=== PATIENT | female | born 1935 | race African-American/Black ===

== ENCOUNTER 2019-02-17 12:46 | Inpatient (IN) | payer MEDICARE ==
[~2019-02-17] VITALS: Ht 157.5 cm; Wt 65.3 kg
[~2019-02-17 12:46] MED LIST: ALBU6.7H9 IH; AMLO10TA80 PO; ATEN50TA PO; DIAZ10TA4 PO; HYDR-4135 PO; ROSU20TA2 PO
[2019-02-17] MEDS ORDERED: FAMOTIDINE 20MG/2ML VIAL IV STA (13:37)
[2019-02-17] MEDS ORDERED: ONDANSETRON HCL 4MG/2ML INJ IV STA ×2 (13:37→14:15)
[2019-02-17] MEDS ORDERED: SODIUM CHLORIDE 0.9% 1,000 ML IV ONE (14:15)
[2019-02-17] MEDS ORDERED: MORPHINE SULFATE 4 MG/ML CPJ (NOT FOR IM USE) IV STA (14:15)
[2019-02-17 14:39] LABS: BASOPHILS % 0.5 % (0.0-2.0); HEMATOCRIT. 50.2 % (36.0-48.0); HEMOGLOBIN. 16.6 g/dL (12.0-16.0); LYMPHOCYTES % 11.8 % (20.0-50.0); MEAN CORPUSCULAR HEMOGLOBIN 28.1 pg (28.0-32.0); MEAN CORPUSCULAR VOLUME 84.9 fL (81.0-99.0); MEAN PLATELET VOLUME 8.4 fl (7.4-10.4); MONOCYTES % 4.6 % (2.0-8.0); NEUTROPHILS % 83.1 % (40.0-76.0); PLATELET 273 x1000/uL (130-400); RED BLOOD CELL COUNT 5.91 mill/uL (4.2-5.4); RED CELL DISTRIBUTION WIDTH 15.2 % (11.6-14.6)
[2019-02-17 14:47] LABS: CHLORIDE 103 mEq/L (98-107)
[2019-02-17 15:13] LABS: INR 1.1; PROTHROMBIN TIME 11.1 sec (9.6-11.0)
[2019-02-17 16:37] LABS: CLARITY URINE CLOUDY (CLEAR); COLOR URINE DARK YELLOW (YELLOW); KETONES URINE 2+ (NEGATIVE); LEUKOCYTE ESTERASE URINE TRACE (NEGATIVE); NITRITE URINE NEGATIVE (NEGATIVE); OCCULT BLOOD URINE 1+ (NEGATIVE); PROTEIN URINE 1+ (NEGATIVE); SPECIFIC GRAVITY URINE 1.028 (1.005-1.030); UROBILINOGEN URINE 0.2 E.U./dL (0.2-1.0)
[2019-02-17] MEDS ORDERED: DIPHENHYDRAMINE 50MG/ML VIAL IV PRN (17:30)
[2019-02-17] MEDS ORDERED: KETOROLAC 15MG/ML VIAL IV PRN (17:30)
[2019-02-17] MEDS ORDERED: ONDANSETRON HCL 4MG/2ML INJ IV PRN ×3 (17:30→21:30)
[2019-02-17] MEDS ORDERED: IPRATROPIUM/ALBUTEROL 0.5-3(2.5)MG/3ML NEB INH PRN (17:30)
[2019-02-17] MEDS ORDERED: MAGNESIUM/ALUMINUM HYDROXIDE/SIMETHICONE 30ML UDC PO PRN (17:30)
[2019-02-17] MEDS ORDERED: CLONIDINE 0.1MG TABLET PO PRN (17:30)
[2019-02-17] MEDS ORDERED: ACETAMINOPHEN 325MG TABLET PO PRN (17:30)
[2019-02-17] MEDS ORDERED: MORPHINE SULFATE 2 MG/ML CPJ (NOT FOR IM USE) IV PRN (17:30)
[2019-02-17] MEDS ORDERED: POTASSIUM CHLORIDE 20MEQ TABLET SR PO NR (17:41)
[2019-02-17] MEDS ORDERED: HYDROMORPHONE HCL/PF 2MG/ML CPJ IV PRN (19:00)
[2019-02-17] MEDS ORDERED: FENTANYL CITRATE/PF 50MCG/ML 2ML VIAL IV PRN (19:00)
[2019-02-17 19:26] VITALS: BP 152/73
[2019-02-17 20:00] VITALS: BP 153/75
[2019-02-17] MEDS ORDERED: PROPOFOL 200MG/20ML VIAL IV ONE (20:22)
[2019-02-17] MEDS ORDERED: FENTANYL CITRATE/PF 50MCG/ML 2ML VIAL ONE (20:23)
[2019-02-17] MEDS ORDERED: MIDAZOLAM HCL 2 MG/2 ML VIAL ONE (20:23)
[2019-02-17] MEDS ORDERED: LIDOCAINE HCL/PF 1% 10 MG/ML 5ML VIAL ONE (20:23)
[2019-02-17] MEDS: AMLODIPINE 5MG TABLET PO SCH (21:00)
[2019-02-17] MEDS ORDERED: FAMOTIDINE 20MG TABLET PO SCH (21:00)
[2019-02-17] MEDS ORDERED: TEMAZEPAM 15MG CAPSULE PO PRN (21:00)
[2019-02-17] MEDS: DIAZEPAM 5 MG TABLET PO SCH (21:00)
[2019-02-17] MEDS ORDERED: IBUPROFEN 600MG TABLET PO PRN (21:30)
[2019-02-17] MEDS: SODIUM CHLORIDE 0.9% INJ 3ML FLUSH IVF SCH (22:34)
[2019-02-17] MEDS: DEXT 5%/0.45% NACL KCL 20MEQ/L 1,000 ML IV SCH (23:31)
[2019-02-18] VITALS: BP 136/75
[2019-02-18 04:00] VITALS: BP 122/76
[2019-02-18] MEDS: SODIUM CHLORIDE 0.9% INJ 3ML FLUSH IVF SCH ×3 (05:49→21:29)
[2019-02-18 08:00] VITALS: BP 127/71
[2019-02-18] MEDS: DEXT 5%/0.45% NACL KCL 20MEQ/L 1,000 ML IV SCH ×2 (08:30→18:44)
[2019-02-18] MEDS ORDERED: FAMOTIDINE 20MG/2ML VIAL IV SCH (09:00)
[2019-02-18] MEDS: ATENOLOL 50 MG TABLET PO SCH (09:36)
[2019-02-18] MEDS: AMLODIPINE 5MG TABLET PO SCH ×2 (09:36→20:28)
[2019-02-18] MEDS: DIAZEPAM 5 MG TABLET PO SCH ×2 (09:36→20:28)
[2019-02-18 12:00] VITALS: BP 144/86
[2019-02-18] MEDS: METRONIDAZOLE 500 MG PREMIX 100 ML IV SCH ×2 (12:05→23:12)
[2019-02-18] MEDS ORDERED: SODIUM BICARBONATE 4% (2.4MEQ) 5ML VIAL IV ONE (12:37)
[2019-02-18] MEDS ORDERED: LIDOCAINE HCL 1% 20ML VIAL (Pyxis) INJ ONE (12:37)
[2019-02-18] MEDS ORDERED: ONDANSETRON HCL 4MG/2ML INJ IV PRN (13:30)
[2019-02-18] MEDS ORDERED: PANTOPRAZOLE SODIUM 40 MG/VIAL IV SCH (15:15)
[2019-02-18 16:00] VITALS: BP 156/85
[2019-02-18] MEDS: PANTOPRAZOLE 40MG DR TABLET PO SCH (16:18)
[2019-02-18] MEDS: METOCLOPRAMIDE HCL 10MG/2ML VIAL IV PRN (16:20)
[2019-02-18] MEDS: MAGNESIUM HYDROXIDE 400MG/5ML 30ML UDC PO PRN (18:00)
[2019-02-18 20:00] VITALS: BP 124/67
[2019-02-19] VITALS: BP 121/61
[2019-02-19 04:00] VITALS: BP 152/92
[2019-02-19] MEDS: DEXT 5%/0.45% NACL KCL 20MEQ/L 1,000 ML IV SCH ×2 (04:12→18:25)
[2019-02-19] MEDS: PANTOPRAZOLE 40MG DR TABLET PO SCH (06:28)
[2019-02-19] MEDS: SODIUM CHLORIDE 0.9% INJ 3ML FLUSH IVF SCH ×3 (06:29→22:44)
[2019-02-19 08:25] VITALS: BP 140/72
[2019-02-19] MEDS: DIAZEPAM 5 MG TABLET PO SCH ×2 (09:42→20:19)
[2019-02-19] MEDS: AMLODIPINE 5MG TABLET PO SCH ×2 (09:42→20:19)
[2019-02-19] MEDS: ATENOLOL 50 MG TABLET PO SCH (09:43)
[2019-02-19 09:47] LABS: BASOPHILS % 0.1 % (0.0-2.0); CHLORIDE 104 mEq/L (98-107); HEMATOCRIT. 45.2 % (36.0-48.0); HEMOGLOBIN. 14.9 g/dL (12.0-16.0); LYMPHOCYTES % 11.6 % (20.0-50.0); MEAN CORPUSCULAR VOLUME 85.1 fL (81.0-99.0); MEAN PLATELET VOLUME 8.2 fl (7.4-10.4); MONOCYTES % 7.8 % (2.0-8.0); NEUTROPHILS % 80.5 % (40.0-76.0); PLATELET 209 x1000/uL (130-400); RED BLOOD CELL COUNT 5.32 mill/uL (4.2-5.4); RED CELL DISTRIBUTION WIDTH 14.9 % (11.6-14.6)
[2019-02-19 09:53] LABS: PHOSPHORUS 2.4 mg/dL (2.5-4.9)
[2019-02-19] MEDS: METRONIDAZOLE 500 MG PREMIX 100 ML IV SCH (11:31)
[2019-02-19 11:36] VITALS: BP 113/72
[2019-02-19] MEDS ORDERED: ENOXAPARIN 40MG/0.4ML SYR SUBCUT SCH (14:45)
[2019-02-19] MEDS ORDERED: ENOXAPARIN 30MG/0.3ML SYR SUBCUT SCH (16:00)
[2019-02-19] MEDS: MAGNESIUM HYDROXIDE 400MG/5ML 30ML UDC PO PRN (16:22)
[2019-02-19 16:25] VITALS: BP 122/83
[2019-02-19 17:44] LABS: BASOPHILS % 0.1 % (0.0-2.0); EOSINOPHILS % 0.1 % (0.0-5.0); HEMATOCRIT. 43.1 % (36.0-48.0); LYMPHOCYTES % 15.8 % (20.0-50.0); MEAN CORPUSCULAR HEMOGLOBIN 27.9 pg (28.0-32.0); MEAN CORPUSCULAR VOLUME 85.9 fL (81.0-99.0); MEAN PLATELET VOLUME 8.4 fl (7.4-10.4); MONOCYTES % 13.3 % (2.0-8.0); NEUTROPHILS % 70.7 % (40.0-76.0); PLATELET 176 x1000/uL (130-400); RED BLOOD CELL COUNT 5.02 mill/uL (4.2-5.4); RED CELL DISTRIBUTION WIDTH 14.9 % (11.6-14.6)
[2019-02-19] MEDS ORDERED: POTASSIUM PHOS,M-BASIC-D-BASIC 20 MMOL in DEXT 5% WATER 243.3333 ML IV NR (18:00)
[2019-02-19 20:00] VITALS: BP 122/66
[2019-02-20] VITALS: BP 104/61
[2019-02-20 04:00] VITALS: BP_SYST 104; BP_SYST 112; BP_DIAS 61; BP_DIAS 68
[2019-02-20] MEDS: SODIUM CHLORIDE 0.9% INJ 3ML FLUSH IVF SCH ×3 (06:03→21:00)
[2019-02-20] MEDS: PANTOPRAZOLE 40MG DR TABLET PO SCH (06:20)
[2019-02-20 06:56] LABS: EOSINOPHILS % 0.3 % (0.0-5.0); HEMATOCRIT. 41.7 % (36.0-48.0); HEMOGLOBIN. 13.7 g/dL (12.0-16.0); LYMPHOCYTES % 12.3 % (20.0-50.0); MEAN CORPUSCULAR VOLUME 85.3 fL (81.0-99.0); MEAN PLATELET VOLUME 8.6 fl (7.4-10.4); MONOCYTES % 10.7 % (2.0-8.0); NEUTROPHILS % 76.7 % (40.0-76.0); PLATELET 173 x1000/uL (130-400); RED BLOOD CELL COUNT 4.89 mill/uL (4.2-5.4); RED CELL DISTRIBUTION WIDTH 14.7 % (11.6-14.6)
[2019-02-20 08:27] VITALS: BP 102/55
[2019-02-20] MEDS: AMLODIPINE 5MG TABLET PO SCH ×2 (09:00→20:59)
[2019-02-20] MEDS: ATENOLOL 50 MG TABLET PO SCH (09:00)
[2019-02-20] MEDS: DIAZEPAM 5 MG TABLET PO SCH (09:56)
[2019-02-20 11:32] VITALS: BP 101/59
[2019-02-20] MEDS ORDERED: DIAZEPAM 5 MG TABLET PO PRN (13:45)
[2019-02-20 15:49] VITALS: BP 100/58
[2019-02-20 20:00] VITALS: BP 103/58
[2019-02-21] VITALS: BP 114/62
[2019-02-21] MEDS: METOCLOPRAMIDE HCL 10MG/2ML VIAL IV PRN (01:41)
[2019-02-21] MEDS: DEXT 5%/0.45% NACL KCL 20MEQ/L 1,000 ML IV SCH (01:42)
[2019-02-21 04:00] VITALS: BP 130/79
[2019-02-21] MEDS: SODIUM CHLORIDE 0.9% INJ 3ML FLUSH IVF SCH ×2 (05:20→14:36)
[2019-02-21] MEDS: PANTOPRAZOLE 40MG DR TABLET PO SCH ×2 (06:29→10:09)
[2019-02-21 08:00] VITALS: BP 112/58
[2019-02-21] MEDS: ATENOLOL 50 MG TABLET PO SCH (09:00)
[2019-02-21] MEDS: AMLODIPINE 5MG TABLET PO SCH (09:00)
[2019-02-21 12:00] VITALS: BP 92/53
[2019-02-21] MEDS ORDERED: LOPERAMIDE 2 MG/10 ML UDC PO SCH (14:45)
[2019-02-21 15:34] VITALS: BP 95/61
[2019-02-21 16:00] VITALS: BP 95/61
== END 2019-02-21 16:04 | disposition home or self-care (01) | DRG 744 ==
LOC: ER 12:46 → 6EST 16:31 → ENRESERV 17:00
PROVIDERS: ADMIT Internal Medicine; ATTEND Internal Medicine
PROC: 0UDB7ZZ Extraction of Endometrium, Via Natural or Artificial Opening (ICD-10-PCS; principal; 2019-02-17)
PROC: 0W9G3ZZ Drainage of Peritoneal Cavity, Percutaneous Approach (ICD-10-PCS; 2019-02-18)
DX: C54.1 Malignant neoplasm of endometrium (principal); R18.8 Other ascites; D25.9 Leiomyoma of uterus, unspecified; I10 Essential (primary) hypertension; E78.00 Pure hypercholesterolemia, unspecified; K21.9 Gastro-esophageal reflux disease without esophagitis; N20.0 Calculus of kidney; K44.9 Diaphragmatic hernia without obstruction or gangrene; K64.9 Unspecified hemorrhoids; E83.39 Other disorders of phosphorus metabolism; K59.00 Constipation, unspecified; F41.1 Generalized anxiety disorder; M19.90 Unspecified osteoarthritis, unspecified site; N95.9 Unspecified menopausal and perimenopausal disorder; Z79.899 Other long term (current) drug therapy
CPT/HCPCS: 36415; 49083; 71045; 74176; 80048; 83735; 83880; 84100; 84484; 88108; 88305; 88312; 93005; 96374; 96375; 97162; 97166; 97530; 99285; C1893; J2250; J2270; J2405; J2704; J2765; J3010; J3490; J7030; J7060

== ENCOUNTER 2019-03-09 21:12 | Emergency (ER) | payer MEDICARE ==
[~2019-03-09] VITALS: Ht 167.6 cm; Wt 74.0 kg
[2019-03-09] MEDS ORDERED: DOPAMINE 400MG/250ML PREMIX 250 ML IV ONE (22:27)
[2019-03-09] MEDS ORDERED: SUCCINYLCHOLINE CHLORIDE 200MG/10ML IV ONE (22:45)
[2019-03-09] MEDS ORDERED: SODIUM BICARBONATE 7.5% 0.9 MEQ/ML 50ML SYR IV ONE (22:45)
[2019-03-09] MEDS ORDERED: EPINEPHRINE 0.1MG/ML (1:10,000) 10ML SYR ONE ×4 (22:45→23:28)
[2019-03-09] MEDS ORDERED: CALCIUM CHLORIDE 1GM/10ML SYR IV ONE (22:45)
[2019-03-09] MEDS ORDERED: ETOMIDATE 2MG/ML 10ML VIAL IV ONE (22:45)
[2019-03-09] MEDS ORDERED: [UNRECOGNIZED DRUG - OTHER] IV ONE (23:01)
[2019-03-09] MEDS ORDERED: PIPERACILLIN IV ONE (23:01)
[2019-03-09] MEDS ORDERED: NOREPINEPHRINE 4MG/250ML PMX 250 ML IV ONE (23:14)
[2019-03-09 23:21] VITALS: BP 110/57
== END 2019-03-10 03:16 | disposition expired ==
LOC: ER 21:12
DX: I46.9 Cardiac arrest, cause unspecified (principal); C53.9 Malignant neoplasm of cervix uteri, unspecified; C79.89 Secondary malignant neoplasm of other specified sites; R06.00 Dyspnea, unspecified; I11.9 Hypertensive heart disease without heart failure; E78.00 Pure hypercholesterolemia, unspecified
CPT/HCPCS: 31500; 92950; 94002; 99291; J0330; J1265; J3490; J2543